=== PATIENT | male | born 1985 | race Caucasian/White ===

== ENCOUNTER 2022-10-05 14:58 | Emergency (ER) | payer OTHER, MEDICAID, SELFPAY ==
[2022-10-05] VITALS (35 sets, daily range): BP systolic 115–146; BP diastolic 74–99; PULSE 81–113; RESP 14–22; TEMP 36.6; O2SAT 98–100; BMI 25.1
--- NOTE | 2022-10-05 15:30 | DI.RAD.S_ITS ---
PROCEDURE: XR SHOULDER LT MIN 2V INDICATIONS: thinks he dislocated his shoulder TECHNIQUE: 2 views of the shoulder were acquired. COMPARISON: None. FINDINGS: Bones: Anteroinferior shoulder dislocation. No obvious fracture noted. No suspicious bony lesions. Visualized ribs appear intact. Soft tissues: No suspicious soft tissue calcifications. IMPRESSION: Anterior inferior dislocation of the shoulder. Dictated by: Ryan Mann M.D. on 10/05/2022 at 17:30 Approved by: Ryan Mann M.D. on 10/05/2022 at 17:31
[2022-10-05 18:27] LABS: COVID19 -Nasal RAPID Negative (Negative)
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
--- NOTE | 2022-10-05 20:40 | DI.RAD.S_ITS ---
PROCEDURE: XR SHOULDER LT MIN 2V INDICATIONS: post reduction shoulder TECHNIQUE: 2 views of the shoulder were acquired. COMPARISON: [facility], CR, XR SHOULDER LT MIN 2V, 10/05/2022, 15:35. FINDINGS: Bones: There is interval reduction of the previously dislocated left glenohumeral joint. There is a focal depression along the superolateral humeral head consistent with a Hill-Sachs impaction fracture. No discrete bony Bankart fracture identified. Visualized ribs appear intact. Soft tissues: No suspicious soft tissue calcifications. IMPRESSION: 1. Interval reduction of the previously dislocated left glenohumeral joint. 2. Hill-Sachs impaction fracture of the humeral head. Dictated by: Fran Carlson M.D. on 10/05/2022 at 21:23 Approved by: Fran Carlson M.D. on 10/05/2022 at 21:24
[2022-10-05] MEDS: propofoL 200 MG/20 ML VIAL 100 MG IV (20:41)
[2022-10-05] MEDS: SODIUM CHLORIDE 0.9% 1,000 ML 125 ML IV (20:51)
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
== END 2022-10-05 21:52 | disposition home or self-care (01) ==
PROVIDERS: Emergency Medicine; Emergency Provider Emergency Medicine
DX: S43.005A Unspecified dislocation of left shoulder joint, initial encounter (principal); W51.XXXA Accidental striking against or bumped into by another person, initial encounter; Z20.822 Contact with and (suspected) exposure to COVID-19
CPT/HCPCS: 23650; 36415; 73030; 87635; 99152; 99284; 99285; 99291; C9803; J2704

== ENCOUNTER 2023-02-04 16:31 | Emergency (ER) | payer OTHER, MEDICAID, SELFPAY ==
[2023-02-04 16:40] VITALS: BP 122/80; PULSE 107; RESP 16; TEMP 37; O2SAT 96; BMI 25.1
--- NOTE | 2023-02-04 16:44 | DI.RAD.S_ITS ---
PROCEDURE: XR SHOULDER LT MIN 2V INDICATIONS: fall, ? dislocation TECHNIQUE: Three views of the shoulder were acquired. COMPARISON: [facility], CR, XR SHOULDER LT MIN 2V, 10/05/2022, 20:36. FINDINGS: Bones: Anterior glenohumeral joint dislocation. There is humeral head morphology of the Hill-Sachs impaction fracture. No visible fragment to suggest Bankart lesion. No shoulder separation. Soft tissues: No suspicious soft tissue calcifications. IMPRESSION: 1. 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 Dictated by: Maria Eugenia Odonnell M.D. on 02/04/2023 at 17:01 Approved by: Maria Eugenia Odonnell M.D. on 02/04/2023 at 17:02
--- NOTE | 2023-02-04 17:02 | DI.RAD.S_ITS ---
PROCEDURE: XR SHOULDER LT MIN 2V INDICATIONS: post self reduction. TECHNIQUE: Two views of the shoulder were acquired. COMPARISON: [facility], CR, XR SHOULDER LT MIN 2V, 02/04/2023, 16:41. FINDINGS: Bones: Improved alignment of the glenohumeral joint though still potentially anteriorly subluxed on scapular Y-view, slightly obscured by artifact/technique. Humeral head Hill-Sachs deformity. Soft tissues: No suspicious soft tissue calcifications. IMPRESSION: 1. Improved alignment post self reduction of glenohumeral joint, but possible persistent anterior subluxation. Consider repeat scapular Y-view with improved technique. Dictated by: Maria Eugenia Odonnell M.D. on 02/04/2023 at 17:18 Approved by: Maria Eugenia Odonnell M.D. on 02/04/2023 at 17:20
--- NOTE | 2023-02-04 17:17 | ED_ITS ---
HPI - Extremity Injury (Upper) General Chief Complaint: Extremity Injury, Upper Stated Complaint: anoop Copeland shoulder dislocated Time Seen by Provider: 02/04/23 17:00 Source: patient Mode of arrival: Ambulatory History of Present Illness HPI narrative: 37-year-old male with multiple prior shoulder dislocations presents with left shoulder pain and concern for dislocation. He states that he was carrying some heavy objects and stumbled, reached out with them and felt a pop in his shoulder. After which he had significant pain and limited range of motion secondary to a mechanical obstruction. He denies any numbness, tingling or weakness. He states he is done it multiple times on this side and has previously had surgeries on his right shoulder. He denies chest pain or shortness of breath Related Data Allergies Allergy/AdvReac Type Severity Reaction Status Date / Time No Known Drug Allergies Allergy Verified 10/05/22 15:27 Review of Systems Review of Systems Narrative: GENERAL: Denies chills, fatigue, malaise, fever, sweats. HEENT: Denies sinus pain, ear pain, sore throat, difficulty swallowing, dizziness. RESPIRATORY: Denies dyspnea, cough, wheezing, hemoptysis, sputum. CARDIOVASCULAR: Denies chest pain, palpitations, orthopnea, edema, GASTROINTESTINAL: Denies nausea, vomiting, abdominal pain, diarrhea, constipation, melena. : Denies dysuria, frequency, incontinence, hematuria, urinary retention. MUSCULOSKELETAL: see HPI SKIN: Denies rash, skin lesions, or other NEUROLOGIC: Denies weakness, headache, numbness, change in speech, confusion, seizures, incoordination. PSYCHIATRIC: No concerning psychosocial issues. 12 point review of systems is negative except for those stated above Patient History Social History Smoking Status: Current every day smoker Smoking Status: Current every day smoker tobacco type: cigarettes and vaping alcohol intake frequency: holidays/special occasions only Substance Use Type: does not use Exam Narrative Exam Narrative: GENERAL: [37] year old patient appears stated age. Well-developed patient, in mild distress. HEAD: Atraumatic. Normocephalic. EYES: Pupils equal round and reactive. Extraocular motions intact. No scleral icterus. No injection or drainage. ENT: Nose without bleeding, purulent drainage. Throat without erythema, tonsillar hypertrophy or exudate. Airway patent. NECK: Trachea midline. Non tender CARDIOVASCULAR: Regular rate and rhythm without murmurs, gallops, or rubs. RESPIRATORY: Clear to auscultation. Breath sounds equal bilaterally. No wheezes, rales, or rhonchi. GASTROINTESTINAL: Abdomen soft, non-tender, nondistended. EXTREMITIES: left upper extremity with obvious deformity consistent with shoulder dislocation. He has no numbness, tingling or weakness but there is a limited range of motion secondary to mechanical obstruction BACK: Nontender without deformity or crepitance. No flank tenderness. NEURO: AOx3. SKIN: No rash or erythema of visible areas Initial Vital Signs Initial Vital Signs: Vital Signs Temperature 98.6 F 02/04/23 16:40 Pulse Rate 107 H 02/04/23 16:40 Respiratory Rate 16 02/04/23 16:40 Blood Pressure 122/80 02/04/23 16:40 Pulse Oximetry 96 02/04/23 16:40 Oxygen Delivery Method Room Air 02/04/23 16:40 Procedures Orthopedic Splinting/Casting Injury #1: Side: left Upper Extremity Injury Location: shoulder Upper Extremity Immobilizer: sling/shoulder immobilizer Post splinting neuro exam: intact Post splinting vascular exam: intact Placed by: Nursing Course Orders Ordered: ED Orders 02/04/23 16:44 XR shoulder LT min 2V Stat 02/04/23 17:02 XR shoulder LT min 2V Stat Vital Signs Vital signs: Vital Signs - 8 hr 02/04/23 16:40 Temperature 98.6 F Pulse Rate 107 H Respiratory Rate 16 Blood Pressure 122/80 Pulse Oximetry 96 Oxygen Delivery Method Room Air MDM - Extremity Injury (Upper) MDM Narrative Medical decision making narrative: [37] year old patient presents with L shoulder pain Multiple etiologies for patient's symptoms considered including, but not limited to: [dislocation vs. fracture] Prior Charts reviewed in our EMR Primary Historian: patient Imaging reviewed: Initial Xray demonstrates dislocation, post xray demonstrates reduction Patient was moving for xray and spontaneously reduced himself, and repeat Xray demonstrates this. Patient's symptoms improved over duration of stay with above-stated therapies. Findings and discharge diagnosis discussed with patient/family followed by verbalization of understanding Return precautions discussed with patient/family whom verbalize understanding of diagnosis and plan Discharge Plan Departure Patient Disposition: Home Clinical Impression: Anterior shoulder dislocation Instructions: DI for Shoulder Dislocation Activity Restrictions/Additional Instructions: *You have been diagnosed with [ left shoulder dislocation with spontaneous reduction ] *What to do: *Please continue to take your regular medications as directed. [ ] New medication prescriptions sent to your pharmacy: [ ] [ ] New medication written as a paper prescription [x] Tylenol and occasional Motrin for pain *Please follow up with [Nicolle] of [facility] in 2-3 days, call for an appointment. Let them know you were seen in the Emergency Department and that we ask that you be seen in follow up. We will electronically transmit a record of today's note if your PCP is in our system *Return to Emergency Department if you should have any new, worsening or concerning symptoms, such as [worsening pain, significant swelling, cold extremities, numbness, tingling, weakness or other bothersome symptoms Referrals: Alivia Valverde MD [Physician] - Stand Alone Forms: Patient Portal/API
[2023-02-04 17:20] VITALS: PULSE 90
== END 2023-02-04 17:28 | disposition home or self-care (01) ==
PROVIDERS: Emergency Provider Emergency Medicine
DX: S43.005A Unspecified dislocation of left shoulder joint, initial encounter (principal); W18.30XA Fall on same level, unspecified, initial encounter
CPT/HCPCS: 73030; 99283

== ENCOUNTER 2023-03-08 05:13 | Emergency (ER) | payer OTHER, MEDICAID, SELFPAY ==
[2023-03-08 05:33] VITALS: BP 127/85; PULSE 97; RESP 18; TEMP 37; O2SAT 96; BMI 25.8
--- NOTE | 2023-03-08 05:36 | ED.GENADULT ---
HPI - General Adult General Chief complaint: Wound/Laceration Stated complaint: sliced left thumb Time Seen by Provider: 03/08/23 05:19 Source: patient Mode of arrival: Ambulatory History of Present Illness HPI narrative: 37-year-old male daily smoker with no significant medical history presents with his significant other and an accidental laceration to the dorsum of his left thumb just prior to arrival. He was using a sharp knife to pry open something at home with the knife slipped causing his laceration. He has pain some bleeding and a perceived weakness of his thumb. He states his tetanus will need to be updated. He denies any other injury and is otherwise well and free of complaint Related Data Previous Rx's Medication Instructions Recorded cephalexin 500 mg capsule 500 mg PO Q6H 7 days #28 caps 03/08/23 hydrocodone 5 mg-acetaminophen 325 1 tab PO Q4-6H PRN pain #10 tabs 03/08/23 mg tablet Allergies Allergy/AdvReac Type Severity Reaction Status Date / Time No Known Drug Allergies Allergy Verified 10/05/22 15:27 Review of Systems Review of Systems Narrative: GENERAL: Denies chills, fatigue, malaise, fever, sweats. HEENT: Denies sinus pain, ear pain, sore throat, difficulty swallowing, dizziness. RESPIRATORY: Denies dyspnea, cough, wheezing, hemoptysis, sputum. CARDIOVASCULAR: Denies chest pain, palpitations, orthopnea, edema, GASTROINTESTINAL: Denies nausea, vomiting, abdominal pain, diarrhea, constipation, melena. : Denies dysuria, frequency, incontinence, hematuria, urinary retention. MUSCULOSKELETAL: See HPI SKIN: See HPI NEUROLOGIC: See HPI PSYCHIATRIC: No concerning psychosocial issues. 12 point review of systems is negative except for those stated above Patient History Social History Smoking Status: Current every day smoker Smoking Status: Current every day smoker tobacco type: cigarettes and vaping alcohol intake frequency: holidays/special occasions only Substance Use Type: does not use Exam Narrative Exam Narrative: GEN: AOx3 and in mild distress EYES: Pupils are equal, round, and reactive to light and accommodation. Extraoccular muscles are intact bilaterally. There is no subconjunctival hemorrhage or exudate. CHEST: Lungs are clear to auscultation bilaterally and free of wheezes, rales, or rhonchi. Heart rate is regular rhythm, there are no murmurs, clicks, rubs, or gallops. There is no chest wall tenderness. ABD: Abdomen is soft and nontender. There is no guarding or rebound. Bowel sounds are normal in all 4 quadrants. There is no mass or organomegaly. EXT: 2 cm deep laceration of the left thumb on the dorsal surface overlying the proximal phalanx. There is no evidence of foreign body, moderate bleeding and when bleeding is controlled with manual blood pressure cuff in the wound is visualized in a bloodless field there is an apparent complete transection of the extensor pollicis longus. SKIN: Warm, pink, and dry. No erythema or rash Initial Vital Signs Initial Vital Signs: Vital Signs Temperature 98.6 F 03/08/23 05:33 Pulse Rate 97 H 03/08/23 05:33 Respiratory Rate 18 03/08/23 05:33 Blood Pressure 127/85 03/08/23 05:33 Pulse Oximetry 96 03/08/23 05:33 Oxygen Delivery Method Room Air 03/08/23 05:33 Procedures Laceration Repair Laceration 1: Site: hand Side (If applicable): left Size (cm): 2 Description: linear and clean Depth: involves tendon Local Anesthetic: lidocaine 2% Amount of anesthesia used (mL): 3 Pre-repair: wound explored and cleansed with chlorhexadine Skin layer closed with: nylon Skin layer suture size: 4-0 Number of sutures: 3 Technique: simple, interrupted Orthopedic Splinting/Casting Injury #1: Side: left Upper Extremity Injury Location: finger Upper Extremity Immobilizer: thumb spica Post splinting neuro exam: intact Post splinting vascular exam: intact Placed by: Nursing Course Orders Ordered: Discontinued Medications Diphtheria/Tetanus/Acell Pertussis (Tet,Diph,Pertuss(Acell),Vac/Pf 0.5 Ml Syringe) 0.5 ml IM .ONCE ONE Stop: 03/08/23 05:35 Last Admin: 03/08/23 05:44 Dose: 0.5 ml Consultations Consultation #1: Discussed with on-call orthopedist, Dr. Jensen. We have reviewed the patient's history and physical exam as well as clinical course. He recommends sutures for loose wound closure and hemostasis, tetanus updated, splint with thumb spica, antibiotics and follow-up Vital Signs Vital signs: Vital Signs - 8 hr 03/08/23 05:33 Temperature 98.6 F Pulse Rate 97 H Respiratory Rate 18 Blood Pressure 127/85 Pulse Oximetry 96 Oxygen Delivery Method Room Air Medical Decision Making [facility] Narrative Medical decision making narrative: [37] year old patient presents with deep laceration to dorsum of left thumb Multiple etiologies for patient's symptoms considered including, but not limited to: [Laceration versus tendon laceration versus other] Prior Charts reviewed in our EMR Primary Historian: patient Consultations: Discussed with Ortho, see details above Patient's symptoms improved over duration of stay with above-stated therapies. Findings and discharge diagnosis discussed with patient/family followed by verbalization of understanding Return precautions discussed with patient/family whom verbalize understanding of diagnosis and plan Discharge Plan Departure Patient Disposition: Home Clinical Impression: Laceration of tendon of thumb Instructions: DI for Laceration Repair Activity Restrictions/Additional Instructions: *You have been diagnosed with [laceration of left thumb with involvement of the extensor tendon] *What to do: *Please continue to take your regular medications as directed. [x ] New medication prescriptions sent to your pharmacy: [[facility] in [place] ] [ ] New medication written as a paper prescription [ ] No new medications given * as we discussed, please contact Dr. Jensen at [facility]. Please call the office later this morning, let them know you were seen in the emergency department and we would like you seen in follow-up. *Return to Emergency Department if you should have any new, worsening or concerning symptoms, such as [fever greater than 101 F, shaking chills, worsening pain, persistent vomiting or other bothersome symptoms] Prescriptions: New hydrocodone-acetaminophen 5-325 mg tablet 1 tab PO Q4-6H PRN (Reason: pain) Qty: 10 0RF cephalexin 500 mg capsule 500 mg PO Q6H 7 Days Qty: 28 0RF Referrals: Oren Jensen MD [Physician] - Stand Alone Forms: Patient Portal/API
[2023-03-08] MEDS: TET,DIPH,PERTUSS(ACELL),VAC/PF 0.5 ML SYRINGE IM (05:44)
[2023-03-08] MEDS: LIDOCAINE 2% W/EPI INJ 20 ML (05:47)
== END 2023-03-08 05:52 | disposition home or self-care (01) ==
PROVIDERS: Emergency Provider Emergency Medicine
DX: S56.322A Laceration of extensor or abductor muscles, fascia and tendons of left thumb at forearm level, initial encounter (principal); W26.0XXA Contact with knife, initial encounter; Z23 Encounter for immunization
CPT/HCPCS: 12001; 90471; 99283; 90715

== ENCOUNTER 2023-09-10 12:08 | Emergency (ER) | payer OTHER, MEDICAID, SELFPAY ==
[2023-09-10] VITALS (7 sets, daily range): BP systolic 114–119; BP diastolic 71–84; PULSE 98–121; RESP 13–18; TEMP 36.3; O2SAT 98–100; BMI 25.8
--- NOTE | 2023-09-10 12:22 | DI.RAD.S_ITS ---
PROCEDURE: XR CHEST 1V INDICATIONS: suspected sepsis TECHNIQUE: One view of the chest was acquired. COMPARISON: None. FINDINGS: Surgical changes and devices: Right glenoid postoperative change is seen. Lungs and pleura: On this semiupright portable chest examination, no large pneumothorax or large pleural effusions are seen. No focal infiltrates are seen. Mediastinum: Mediastinal contours appear normal. Heart size is normal. Bones and chest wall: No suspicious bony lesions. Overlying soft tissues appear unremarkable. IMPRESSION: No acute cardiopulmonary abnormality is seen. No focal infiltrates are seen. Dictated by: Adriano Sheffield M.D. on 09/10/2023 at 11:40 Approved by: Adriano Sheffield M.D. on 09/10/2023 at 11:40
--- NOTE | 2023-09-10 12:53 | PC.NURSE ---
Pt reports that he has been feeling sick for a few days, Pt reports feeling achey, sore throat, weak, tired and has a headache. Pt's girlfriend stated that pt had a fever last night because he felt really warm. A wound on right 5th finger appears to be clean and dry and pt reports that he has been washing it with soap and water and iodine and keeping it covered at work. Pt does not know how he got the wound. Pt a&ox4. Denies cp, sob, n/v. Pt states he has headache 06/19
[2023-09-10 12:56] LABS: Strep Grp A by PCR Rapid Positive (Negative)
[2023-09-10 12:57] LABS: Hematocrit 47.6 % (41-53); Hemoglobin 15.8 g/dL (13.5-17.5); Mean Corpuscular HGB Conc 33.3 % (30-36); Mean Corpuscular Hemoglobin 29.6 PG (26-34); Mean Corpuscular Volume 88.9 fL (80-100); Platelet Count 269 X10^3/uL (150-400); Red Blood Cell Count 5.36 X10^6/uL (4.5-5.9); Red Cell Distribution Width 13.4 % (11.6-14.8)
[2023-09-10 13:00] LABS: Add Manual Diff / Slide Review YES; INR 1.1 (0.9-1.3); Prothrombin Time 13.1 SECONDS (9.4-12.5)
[2023-09-10] MEDS: SODIUM CHLORIDE 0.9% 1,000 ML 1000 ML IV (13:02)
[2023-09-10 13:03] LABS: PTT Partial Thromboplastin Tim 31 SECONDS (25.1-36.5)
[2023-09-10] MEDS: ONDANSETRON 4 MG/2 ML INJ IV (13:05)
[2023-09-10 13:06] LABS: Lactate (Lactic Acid) 1.4 mmol/L (0.7-2.1)
[2023-09-10 13:08] LABS: Alanine Aminotransferase 25 IU/L (<50); Albumin 4.4 g/dL (3.5-5.0); Albumin Globulin Ratio 1.2 (1.0-2.8); Alkaline Phosphatase 87 U/L (38-126); Aspartate Aminotransferase 28 IU/L (17-59); BUN Creatinine Ratio 9.4 (6-22); Bilirubin Total 0.7 mg/dL (0.2-1.3); Blood Urea Nitrogen 9 mg/dL (9-20); Calcium 9.7 mg/dL (8.4-10.2); Carbon Dioxide 28 mmol/L (22-32); Chloride 99 mmol/L (98-107); Estimated Glomerular Filt Rate > 60 mL/min (>60); Globulin 3.6 g/dL (1.7-4.1); Glucose 91 mg/dL (70-100); HEMOLYSIS 16 (0-50); Lipase 82 U/L (23-300); Potassium 3.6 mmol/L (3.4-5.1); Sodium 135 mmol/L (137-145)
[2023-09-10 13:24] LABS: Procalcitonin 0.08 ng/mL (<0.5)
--- NOTE | 2023-09-10 13:24 | ED.WOUNDLAC ---
HPI - Wound/Laceration General Chief Complaint: Wound/Laceration Stated Complaint: finger infection Time Seen by Provider: 09/10/23 12:48 Source: patient Mode of arrival: Ambulatory History of Present Illness HPI narrative: Patient is a 38-year-old male without significant past medical history presenting with 2 days of a sore throat. He says that he has been unable to eat and drink very much. He may have had a fever but it is afebrile here. Noted to be tachycardic heart rate 121. No chest pain or shortness of breath. He has a going right little finger wound that he reports just isn't quite healing. But it has not anymore painful red worse today. No abdominal pain nausea or vomiting. He reports that he is quite hungry. Related Data Previous Rx's Medication Instructions Recorded hydrocodone 5 mg-acetaminophen 325 1 tab PO Q4-6H PRN pain #10 tabs 03/08/23 mg tablet amoxicillin 500 mg capsule 500 mg PO BID #20 caps 09/10/23 Allergies Allergy/AdvReac Type Severity Reaction Status Date / Time No Known Drug Allergies Allergy Verified 09/10/23 12:13 Patient History Social History Smoking Status: Current every day smoker Smoking Status: Current every day smoker tobacco type: cigarettes and vaping alcohol intake frequency: holidays/special occasions only Substance Use Type: marijuana Exam Initial Vital Signs Initial Vital Signs: Vital Signs Temperature 97.4 F L 09/10/23 12:13 Pulse Rate 121 H 09/10/23 12:13 Respiratory Rate 18 09/10/23 12:13 Blood Pressure 114/71 09/10/23 12:13 Pulse Oximetry 100 09/10/23 12:13 Oxygen Delivery Method Room Air 09/10/23 12:13 GENERAL: Alert week 38-year-old male and in no acute distress. HEENT: Head atraumatic,EOMI, pupils reactive, face symmetric, moist mucous membranes PHARYNX: Mildly erythematous no uvula swelling or deviation no stridor airway compromise no exudates no cervical lymphadenopathy CARDIOVASCULAR: Regular rate and rhythm without murmurs, rubs or gallops. RESPIRATORY: Breath sounds equal bilaterally, no wheezes rales or rhonchi. ABDOMEN: Soft, nontender. Normoactive bowel sounds all 4 quadrants. No guarding or rebound. EXTREMITIES: Normal range of motion, no clubbing or edema. Neurovascularly intact NEUROLOGICAL: Alert and oriented x4. SKIN: Warm, dry, no laceration, no petechiae, no rashes or lesions. Right little finger healing wound no abscess peeling of skin no erythema no streaking minimal decreased range of motion good cap refill Course Orders Ordered: ED Orders 09/10/23 12:22 XR chest 1V Stat Strep Grp A by PCR Rapid Stat RT Consult Eval and Treat NOW 09/10/23 12:36 Complete Blood Count AUTO DIFF Stat Comprehensive Metabolic Panel Stat Lactate (Lactic Acid) Stat Lipase Stat PTT Partial Thromboplastin [place] Stat Procalcitonin Stat Prothrombin Time INR Stat 09/10/23 12:40 Covid-19 + FLU A/B + RSV - PCR Stat 09/10/23 13:07 Blood Culture Stat Discontinued Medications Acetaminophen (Acetaminophen 325 Mg Tablet) 975 mg PO NOW ONE Stop: 09/10/23 13:10 Last Admin: 09/10/23 13:36 Dose: 975 mg Documented By: LEWIS Amoxicillin (Amoxicillin 250 Mg Prepack) 1 bottle MISC DIRECTED ONE Stop: 09/10/23 13:30 Last Admin: 09/10/23 13:36 Dose: 1 bottle Documented By: LEWIS Amoxicillin (Amoxicillin 250 Mg Capsule) 500 mg PO NOW ONE Stop: 09/10/23 13:31 Last Admin: 09/10/23 13:37 Dose: 500 mg Documented By: LEWIS Sodium Chloride (Normal Saline 0.9%) 1,000 mls @ 1,000 mls/hr IV BOLUS ONE Stop: 09/10/23 13:21 Last Infusion: 09/10/23 13:54 Dose: Infused Documented By: Admin: 09/10/23 13:02 Dose: 1,000 mls/hr Documented By: LEWIS Ketorolac Tromethamine (Ketorolac 30 Mg/Ml Vial) 15 mg IV NOW ONE Stop: 09/10/23 13:30 Last Admin: 09/10/23 13:36 Dose: 15 mg Documented By: LEWIS Ondansetron HCl (Ondansetron 4 Mg/2 Ml Inj) 4 mg IV NOW PRN PRN Reason: Nausea And Vomiting Last Admin: 09/10/23 13:05 Dose: 4 mg Documented By: LEWIS Ondansetron HCl (Ondansetron 4 Mg Odt) 4 mg SL NOW PRN PRN Reason: Nausea And Vomiting Vital Signs Vital signs: Vital Signs - 8 hr 09/10/23 12:13 09/10/23 12:25 09/10/23 12:28 Temperature 97.4 F L Pulse Rate 121 H 115 H Respiratory Rate 18 Blood Pressure 114/71 117/84 Pulse Oximetry 100 99 Oxygen Delivery Method Room Air 09/10/23 12:28 09/10/23 12:30 09/10/23 12:34 Temperature Pulse Rate 118 H 113 H 111 H Respiratory Rate 16 13 16 Blood Pressure Pulse Oximetry 98 98 98 Oxygen Delivery Method Room Air 09/10/23 12:34 09/10/23 13:00 09/10/23 13:00 Temperature Pulse Rate 98 H Respiratory Rate Blood Pressure 115/80 119/83 Pulse Oximetry 98 Oxygen Delivery Method 09/10/23 13:30 09/10/23 13:30 Temperature Pulse Rate 101 H Respiratory Rate 14 Blood Pressure 116/81 Pulse Oximetry 100 Oxygen Delivery Method MDM - Wound/Laceration Lab Data 09/10/23 12:36 09/10/23 12:36 Labs: Lab Results 09/10/23 09/10/23 09/10/23 Range/Units 12:22 12:36 12:40 WBC 14.0 H (4.5-11.0) X10^3/uL RBC 5.36 (4.5-5.9) X10^6/uL Hgb 15.8 (13.5-17.5) g/dL Hct 47.6 (41-53) % MCV 88.9 (80-100) fL MCH 29.6 (26-34) PG MCHC 33.3 (30-36) % RDW 13.4 (11.6-14.8) % Plt Count 269 (150-400) X10^3/uL Neut % (Auto) Not Reportable Lymph % (Auto) Not Reportable [place] % (Auto) Not Reportable Eos % (Auto) Not Reportable Baso % (Auto) Not Reportable Lymph # (Auto) Not Reportable [place] # (Auto) Not Reportable Baso # (Auto) Not Reportable Total Counted 100 Seg Neutrophils % 63.0 (38-70) % Band Neutrophils % 7.0 (3-7) % Lymphocytes % (Manual) 20.0 L (25-45) % Monocytes % (Manual) 7.0 (2-11) % Metamyelocytes % 1.0 H (-0) % Myelocytes % 2.0 H (-0) % Neutrophils # (Manual) 9800 H (8814-1357) /uL RBC Morphology Normal morphology PT 13.1 H (9.4-12.5) SECONDS INR 1.1 (0.9-1.3) APTT 31 (25.1-36.5) SECONDS Sodium 135 L (137-145) mmol/L Potassium 3.6 (3.4-5.1) mmol/L Chloride 99 (98-107) mmol/L Carbon Dioxide 28 (22-32) mmol/L BUN 9 (9-20) mg/dL Creatinine 0.96 (0.66-1.25) mg/dL Estimated GFR > 60 (>60) mL/min BUN/Creatinine Ratio 9.4 (6-22) Glucose 91 (70-100) mg/dL Lactate 1.4 (0.7-2.1) mmol/L Calcium 9.7 (8.4-10.2) mg/dL Total Bilirubin 0.7 (0.2-1.3) mg/dL AST 28 (17-59) IU/L ALT 25 (<50) IU/L Alkaline Phosphatase 87 (38-126) U/L Total Protein 8.0 (6.3-8.2) g/dL Albumin 4.4 (3.5-5.0) g/dL Globulin 3.6 (1.7-4.1) g/dL Albumin/Globulin Ratio 1.2 (1.0-2.8) Lipase 82 (23-300) U/L Procalcitonin 0.08 (<0.5) ng/mL SARS-CoV-2 (PCR) Negative (Negative) Influenza A (RT-PCR) Flu a negative (NEGATIVE) Influenza B (RT-PCR) Flu b negative (NEGATIVE) RSV (PCR) Negative (Negative) Group A Strep (PCR) Positive H (Negative) Imaging Data Chest x-ray: Radiologist's Impression: PROCEDURE: XR CHEST 1V INDICATIONS: suspected sepsis TECHNIQUE: One view of the chest was acquired. COMPARISON: None. FINDINGS: Surgical changes and devices: Right glenoid postoperative change is seen. Lungs and pleura: On this semiupright portable chest examination, no large pneumothorax or large pleural effusions are seen. No focal infiltrates are seen. Mediastinum: Mediastinal contours appear normal. Heart size is normal. Bones and chest wall: No suspicious bony lesions. Overlying soft tissues appear unremarkable. IMPRESSION: No acute cardiopulmonary abnormality is seen. No focal infiltrates are seen. Dictated by: Adriano Sheffield M.D. on 09/10/2023 at 11:40 Approved by: Adriano Sheffield M.D. on 09/10/2023 at 11:40 [facility] Narrative Medical decision making narrative: Patient 38-year-old male positive for SIRS with elevated heart rate and concern for infection. He is really complaining of a sore throat not of his finger which seems to be improving. He is strep positive he had leukocytosis of 14. Heart rate improved with IV fluids and pain control. qSOFA 0. At this time he has no airway compromise he is tolerating oral fluids. No need for admission. Can be treated with amoxicillin as outpatient No concern for peritonsillar abscess or retropharyngeal abscess. #66: Appropriate Testing for Patients with Pharyngitis x The patient has acute pharyngitis/tonsillitis. The patient was prescribed antibiotics today and a strep test or culture was performed. [SATISFIES MIPS PERFORMANCE] [] The patient has acute pharyngitis/tonsillitis and was prescribed antibiotics today. A strep test or culture was not performed because the patient meets one of the following: [MIPS PERFORMANCE EXCEPTION/EXCLUSION] [] Patient received a competing diagnosis. The patient?s competing diagnosis is [] (e.g. acute otitis media, chronic sinusitis, cellulitis, etc.) [] Patient is currently on antibiotics or has been in the last 30 days. [] Patient had a competing comorbid condition within the last 12 months. The patient?s comorbid condition is [] (e.g., tuberculosis, neutropenia, cystic fibrosis, chronic bronchitis, pulmonary edema, respiratory failure, rheumatoid lung disease) [] The patient has acute pharyngitis/tonsillitis. The patient was prescribed antibiotics today and a strep test or culture was not performed. [DOES NOT SATISFY MIPS PERFORMANCE] Discharge Plan Departure Patient Disposition: Home Clinical Impression: Strep pharyngitis Instructions: DI for Strep Throat Activity Restrictions/Additional Instructions: *You have been diagnosed with strep pharyngitis *What to do: At this time you will need to take antibiotics for 10 days you have strep throat. Apply antibiotic ointment to your finger Continue to stay hydrated *Continue to take medications as directed Amoxicillin 500 mg twice a day for 10 days Tylenol 650 mg every 4-6 hours for [id number] pain or fever Motrin 600 mg every 6 hours if needed for [id number] pain or fever *Follow up with your primary care provider in 2-3 days or call [phone] *Return to ER if you should have increased difficulty breathing inability to tolerate fluids or any new, worsening or concerning symptoms Prescriptions: New amoxicillin 500 mg capsule 500 mg PO BID Qty: 20 0RF No Action hydrocodone-acetaminophen 5-325 mg tablet 1 tab PO Q4-6H PRN (Reason: pain) Qty: 10 0RF Referrals: Miscellaneous,Doctor, [Primary Care Provider] - Stand Alone Forms: Patient Portal/API
[2023-09-10 13:36] LABS: Influenza A - CEPHEID Flu A NEGATIVE (NEGATIVE); Influenza B - CEPHEID Flu B NEGATIVE (NEGATIVE); Respiratory Syncytial Virus Negative (Negative)
[2023-09-10] MEDS: ACETAMINOPHEN 325 MG TABLET 975 MG PO (13:36)
[2023-09-10] MEDS: AMOXICILLIN 250 MG PREPACK 1 BOTTLE MISC (13:36)
[2023-09-10] MEDS: KETOROLAC 30 MG/ML VIAL 15 MG IV (13:36)
[2023-09-10] MEDS: AMOXICILLIN 250 MG CAPSULE 500 MG PO (13:37)
[2023-09-10 13:41] LABS: COVID-19 CEPHEID 4-PLEX PCR Negative (Negative)
[2023-09-10 13:47] LABS: Neutrophils Absolute Manual 9800 /uL (3000-5900); Total Cells Counted 100
[2023-09-10 13:48] LABS: RBC Morphology Normal Morphology
== END 2023-09-10 13:54 | disposition home or self-care (01) ==
PROVIDERS: Emergency Provider Emergency Medicine
DX: J02.0 Streptococcal pharyngitis (principal); R65.10 Systemic inflammatory response syndrome (SIRS) of non-infectious origin without acute organ dysfunction; F17.200 Nicotine dependence, unspecified, uncomplicated
CPT/HCPCS: 0241U; 36415; 71045; 80053; 83605; 83690; 84145; 85007; 85025; 85610; 85730; 87040; 87651; 96374; 96375; 99284; J1885; J2405